=== PATIENT | female | born 1995 | race African-American/Black ===

== ENCOUNTER 2017-09-21 20:01 | Emergency (ER) | payer MEDICAID ==
[~2017-09-21] VITALS: Ht 175.3 cm; Wt 113.9 kg
[2017-09-21 20:39] LABS: WHITE BLOOD COUNT 11.8 x10^3/uL (3.4-10)
[2017-09-21 20:51] LABS: ASPARTATE AMINO TRANSFERASE 12 U/L (15-37); BLOOD UREA NITROGEN 12 mg/dL (7-18)
[2017-09-21] MEDS ORDERED: ONDANSETRON 2MG/ML, 2ML ONE (20:52)
[2017-09-21] MEDS ORDERED: SODIUM CHLORIDE FLUSH 10ML SYR IVF ONE (21:00)
[2017-09-21] MEDS ORDERED: SODIUM CHLORIDE 0.9% 1,000ML IVBOLUS ONE (21:00)
[2017-09-21] MEDS ORDERED: ONDANSETRON 2MG/ML, 2ML IVPush ONE (21:00)
[2017-09-21 22:03] VITALS: BP 110/72
== END 2017-09-21 22:36 | disposition home or self-care (01) ==
LOC: ED 22:20
DX: R10.32 Left lower quadrant pain (principal); R11.2 Nausea with vomiting, unspecified; R19.7 Diarrhea, unspecified
CPT/HCPCS: 36415; 74020; 80053; 81003; 84703; 85025; 96361; 96374; 99285; J2405; J7030

== ENCOUNTER 2018-11-03 13:17 | Emergency (ER) | payer SELFPAY ==
[~2018-11-03] VITALS: Ht 175.3 cm; Wt 111.8 kg
[2018-11-03 13:31] VITALS: BP 143/85
[2018-11-03 14:22] LABS: HCG UR SG 1.013 (1.003-1.030); MICROSCOPIC AUTO
[2018-11-03 14:24] LABS: CULTURE INDICATED? NO
[2018-11-03 14:53] LABS: ALBUMIN 3.7 g/dL (3.4-5.0); ANION GAP 4 mmol/L (5-15); CALCIUM 9.2 mg/dL (8.5-10.1); CHLORIDE 108 mmol/L (98-107)
--- NOTE | 2018-11-03 14:55 | NUR ---
PT TO ROOM FROM LOBBY.
[2018-11-03 14:59] LABS: ALANINE AMINOTRANSFERASE 18 U/L (12-78); ALKALINE PHOSPHATASE 70 U/L (45-117); CREATININE 0.97 mg/dL (0.55-1.02); TOTAL PROTEIN 7.9 g/dL (6.4-8.2)
[2018-11-03 15:05] LABS: BILIRUBIN,TOTAL 0.4 mg/dL (0.2-1.0)
[2018-11-03 15:15] LABS: BASOPHILS # (AUTO) 0.02 x10^3/uL (0-0.1); BASOPHILS % (AUTO) 0 % (0-1); EOSINOPHILS % (AUTO) 2 % (1-7); LYMPHOCYTES # (AUTO) 2.04 x10^3/uL (1-3.4); LYMPHOCYTES % (AUTO) 48 % (22-44); MD NO; MEAN CORPUSCULAR HEMOGLOBIN 27.7 pg (27.0-34.8); MEAN CORPUSCULAR HGB CONC 33.5 g/dL (32.4-35.8); MEAN CORPUSCULAR VOLUME 82.9 fL (80-100); MEAN PLATELET VOLUME 8.1 fL (7.4-10.4); MONOCYTES # (AUTO) 0.34 x10^3/uL (0.2-0.8); MONOCYTES % (AUTO) 8 % (2-9); NEUTROPHILS # (AUTO) 1.75 x10^3/uL (1.8-6.8); NEUTROPHILS % (AUTO) 41 % (42-75); PLATELET COUNT 347 x10^3/uL (130-400); RED BLOOD COUNT 5.28 x10^6/uL (3.82-5.3); RED CELL DISTRIBUTION WIDTH 13.8 % (9.6-15.2)
--- NOTE | 2018-11-03 15:15 | NUR ---
PIT ORDERS BACK, PT FOR RECHECK FOLLOWING ORTHOSTATIC VS.
--- NOTE | 2018-11-03 15:44 | NUR ---
PT NOT IN ROOM FOR DISCHARGE PAPERWORK. PT NOT SEEN IN HAYDEN OR LOBBY.
== END 2018-11-03 15:46 | disposition home or self-care (01) ==
LOC: ED 15:40
DX: R10.32 Left lower quadrant pain (principal); R10.12 Left upper quadrant pain; N94.4 Primary dysmenorrhea
CPT/HCPCS: 36415; 80053; 81001; 81025; 84703; 85025; 93005; 99284